=== PATIENT | male | born 1975 | race Caucasian/White ===

== ENCOUNTER 2017-04-08 21:37 | Emergency (ER) | payer OTHER ==
[~2017-04-08] VITALS: Ht 177.8 cm; Wt 81.0 kg
[~2017-04-08 21:37] MED LIST: AMOXICILLIN500 MG OR; AMOXICILLIN500 MG PO; CEPHALEXIN500 MG OR; FLEXERIL5 M1 PO; LORTAB 5 OR; LORTAB 5/3255 MG PO; NAPROSYN500 MG PO; NO MEDS; PERCOCET 5/325M1 TAB OR; PERCOCET 5/325M1 TAB PO
[2017-04-08] MEDS ORDERED: ULTRAM50 M1 PO (22:44)
[2017-04-08 23:10] VITALS: BP 125/84
== END 2017-04-08 23:10 | disposition home or self-care (01) | DRG 605 ==
LOC: ED 21:37
DX: S90.32XA Contusion of left foot, initial encounter (principal); W22.8XXA Striking against or struck by other objects, initial encounter; Y93.K9 Activity, other involving animal care; Y92.73 Farm field as the place of occurrence of the external cause

== ENCOUNTER 2017-05-06 12:45 | Emergency (ER) | payer OTHER ==
[~2017-05-06] VITALS: Ht 177.8 cm; Wt 80.0 kg
[~2017-05-06 12:45] MED LIST changes: +ULTRAM50 M1 PO
[2017-05-06] MEDS ORDERED: LORTAB 10-325 M1 TAB PO (13:36)
[2017-05-06 13:40] VITALS: BP 136/80
== END 2017-05-06 13:40 | disposition home or self-care (01) | DRG 563 ==
LOC: ED 12:45
PROC: 2W3EX1Z Immobilization of Right Hand using Splint (ICD-10-PCS; principal; 2017-05-06)
DX: S62.306A Unspecified fracture of fifth metacarpal bone, right hand, initial encounter for closed fracture (principal); W22.8XXA Striking against or struck by other objects, initial encounter; Y93.K9 Activity, other involving animal care; Y92.009 Unspecified place in unspecified non-institutional (private) residence as the place of occurrence of the external cause

== ENCOUNTER 2019-10-20 | Emergency (ER) | payer OTHER ==
[~2019-10-20] MED LIST changes: +LORTAB 10-325 M1 TAB PO
[2019-10-20] MEDS ORDERED: KEFLEX500 M1 PO (19:33)
== END 2019-10-20 19:52 | disposition home or self-care (01) | DRG 605 ==
PROC: 0HQGXZZ Repair Left Hand Skin, External Approach (ICD-10-PCS; principal; 2019-10-20)
DX: S61.211A Laceration without foreign body of left index finger without damage to nail, initial encounter (principal); S61.213A Laceration without foreign body of left middle finger without damage to nail, initial encounter; F17.290 Nicotine dependence, other tobacco product, uncomplicated; W29.3XXA Contact with powered garden and outdoor hand tools and machinery, initial encounter

== ENCOUNTER 2021-04-24 19:24 | Emergency (ER) | payer OTHER ==
[~2021-04-24] VITALS: Ht 177.8 cm; Wt 79.0 kg
[~2021-04-24 19:24] MED LIST changes: +KEFLEX500 M1 PO
[2021-04-24] MEDS ORDERED: NAPROXEN500 MG PO (20:49)
[2021-04-24 20:55] VITALS: BP 144/79
== END 2021-04-24 20:55 | disposition home or self-care (01) | DRG 605 ==
LOC: ED 19:24
DX: S70.01XA Contusion of right hip, initial encounter (principal); S20.211A Contusion of right front wall of thorax, initial encounter; F17.200 Nicotine dependence, unspecified, uncomplicated; W10.9XXA Fall (on) (from) unspecified stairs and steps, initial encounter; Y92.009 Unspecified place in unspecified non-institutional (private) residence as the place of occurrence of the external cause